=== PATIENT | male | born 1985 | race Caucasian/White ===

== ENCOUNTER → 2022-08-11 | Outpatient (CLI) | payer BC, SELFPAY ==
--- NOTE | 2022-08-11 15:45 | MRI_ITS ---
EXAM: MR RIGHT LOWER EXTREMITY WITHOUT INTRAVENOUS CONTRAST, TIBIA AND FIBULA CLINICAL INDICATION: Pain -- RIGHT POSTERIOR MID CALF PAIN, INJURY 07/25/22 TECHNIQUE: Multiplanar and multisequence MR images of the right tibia and fibula without intravenous contrast. COMPARISON: No relevant prior studies available. FINDINGS: BONES/JOINTS: Question heterogeneous lesion involving the lateral metadiaphysis of the left distal tibia measuring 3.9 x 1.9 cm. No fracture. No joint effusion. No bone marrow signal alterations. MUSCLES: Unremarkable. No edema or myositis. OTHER SOFT TISSUES: Moderate grade myotendinous junction sprain of the right Achilles. Subcutaneous edema posteriorly. OTHER FINDINGS: No hemorrhage. No hematoma. MRI/Lower Ext/No Jt/w/o IMPRESSION: 1. Moderate grade myotendinous junction sprain of the right Achilles. 2. Incidental note of a heterogeneous lesion involving the lateral metadiaphysis of the left distal tibia measuring 3.9 x 1.9 cm. Differential diagnosis includes but is not limited to nonossifying fibroma. Recommend correlation with dedicated left tibia/fibula radiography. Electronically Signed: Anastacio Reich MD at 22:29 EDT ,
--- NOTE | 2022-08-11 15:45 | MRI_ITS ---
EXAM: MR RIGHT LOWER EXTREMITY WITHOUT INTRAVENOUS CONTRAST, ANKLE CLINICAL INDICATION: pain -- Rule out re-rupture, ACHILLES PAIN TECHNIQUE: Multiplanar and multisequence MR images of the right ankle without intravenous contrast. COMPARISON: No relevant prior studies available. FINDINGS: LIGAMENTS: ANTERIOR TALOFIBULAR: Unremarkable. Intact. POSTERIOR TALOFIBULAR: Unremarkable. Intact. ANTERIOR TIBIOFIBULAR: Unremarkable. Intact. POSTERIOR TIBIOFIBULAR: Unremarkable. Intact. CALCANEOFIBULAR: Unremarkable. Intact. DELTOID: Low to moderate sprain injury involving the deep fibers of the deltoid ligamentous complex. SPRING: Unremarkable. Intact. LISFRANC: Unremarkable. Intact. TENDONS: ACHILLES: Fusiform thickening of the Achilles tendon compatible with moderate grade tendinosis. Low to moderate grade partial-thickness tear at the posterior aspect of the myotendinous junction of the Achilles, approximately 10 cm above the calcaneal attachment of the Achilles tendon. FLEXOR: Unremarkable. Intact. EXTENSOR: Unremarkable. Intact. PERONEAL: Unremarkable. Intact. TIBIALIS ANTERIOR: Unremarkable. Intact. TIBIALIS POSTERIOR: Unremarkable. Intact. MUSCLES: Unremarkable. Normal bulk and signal. FLUID: Small tibiotalar joint effusion posteriorly. SINUS TARSI: Sinus Tarsi is normal. TARSAL TUNNEL: Unremarkable. PLANTAR FASCIA: Unremarkable. Intact. CARTILAGE: Unremarkable. No osteochondral lesion. Articular cartilage intact. BONES/JOINTS: Nonunited fracture at the base of the fifth metatarsal. Talar dome intact. OTHER SOFT TISSUES: Mild pre-Achilles soft tissue edema. Subcutaneous edema posteromedially which is nonspecific. OTHER FINDINGS: Plantar aponeurosis shows normal signal and morphology. MRI/Lower Ext Joint Only (Routine) IMPRESSION: 1. Low to moderate grade partial-thickness tear at the posterior aspect of the myotendinous junction of the Achilles, approximately 10 cm above the calcaneal attachment of the Achilles tendon. 2. Nonunited fracture at the base of the fifth metatarsal. 3. Low to moderate sprain injury involving the deep fibers of the deltoid ligamentous complex. Electronically Signed: Anastacio Reich MD at 22:14 EDT Reading Location ID and State: [address] [place] [address] Tel , Service support ,
== END | disposition home or self-care (01) ==
LOC: MRI 15:27
PROVIDERS: Referring Provider Nurse Practitioner; Visit Provider Nurse Practitioner
DX: S86.011A Strain of right Achilles tendon, initial encounter (principal)
CPT/HCPCS: 73718; 73721